=== PATIENT | female | born 1965 | race African-American/Black ===

== ENCOUNTER → 2016-06-17 | Outpatient (CLI) | payer OTHER ==
--- NOTE | 2016-06-17 13:50 | XR ---
EXAMINATION TYPE: XR hand complete RT DATE OF EXAM: 06/17/2016 1:17 PM COMPARISON: NONE HISTORY: 50 year-old female right thumb contusion with nail damage, pain and swelling at the base of the bone. TECHNIQUE: Three views FINDINGS: There is severe degenerative joint space narrowing with marginal spurring at the first MCP joint. Ext ensive subchondral sclerosis and cystic change and essentially [id number] abutment. Mild degenerati ve changes at the first IP joint and additional mild scattered degenerative changes at the DIP joints . No acute fracture or dislocation seen. 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 Adjacen t soft tissue swelling. Scattered mild osteoarthritic changes within the DIP joints. No acute osseous abnormality seen.
== END | disposition home or self-care (01) ==
LOC: RADXRMAIN 13:01
PROVIDERS: ATTEND Emergency Medicine
DX: M25.841 Other specified joint disorders, right hand (principal); R22.31 Localized swelling, mass and lump, right upper limb; M19.041 Primary osteoarthritis, right hand